=== PATIENT | female | born 1980 | race Caucasian/White ===

== ENCOUNTER 2016-05-08 13:43 | Emergency (ER) | payer OTHER, MEDICAID ==
--- NOTE | 2016-05-08 14:02 | ER Document Report ---
ED Medical Screen (RME) - General Stated Complaint: RIGHT EAR PAIN,SIDE PAIN,LOOSE STOOLS Mode of Arrival: Ambulatory Information source: Patient Notes: C/O abdominal pain with loose stools and right ear pain and swollen lymph node for the past couple days. Denies fever vomiting. Patient is 13 weeks . Patient is due in September, . Denies vaginal bleeding, denies pain with void. Stools have foul smell order, denies recent antibiotic use,no history of C. Diff. I have greeted and performed a rapid initial assessment of this patient. A comprehensive ED assessment and evaluation of the patient, analysis of test results and completion of the medical decision making process will be conducted by additional ED providers. TRAVEL OUTSIDE OF THE [place] 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
[2016-05-08 14:47] LABS: APPEARANCE,URINE CLEAR; BILIRUBIN,URINE NEGATIVE (NEGATIVE); GLUCOSE, URINE NEGATIVE (NEGATIVE); KETONES,URINE 20 mg/dL (NEGATIVE); LEUKOCYTE ESTERASE,URINE NEGATIVE (NEGATIVE); NITRITE,URINE NEGATIVE (NEGATIVE); PROTEIN,URINE NEGATIVE (NEGATIVE); URINE SPECIFIC GRAVITY 1.008; UROBILINOGEN,URINE NEGATIVE mg/dL (<2.0)
[2016-05-08 14:51] LABS: ABSOLUTE EOSINOPHILS # (AUTO) 0.3 10^3/uL (0.0-0.6); ABSOLUTE MONOCYTES (AUTO) 0.3 10^3/uL (0.1-1.4); ABSOLUTE NEUT (AUTO) 7.1 10^3/uL (1.7-8.2); BASOPHILS % (AUTO) 0.4 % (0-2); EOSINOPHILS % (AUTO) 3.1 % (0-6); HEMATOCRIT 39.3 % (36.0-47.0); HEMOGLOBIN 13.1 g/dL (12.0-15.5); LYMPHOCYTES % (AUTO) 20.6 % (13-45); MEAN CORPUSCULAR HEMOGLOBIN 30.7 pg (27.0-33.4); MEAN CORPUSCULAR HGB CONC 33.3 g/dL (32.0-36.0); MEAN CORPUSCULAR VOLUME 92 fl (80-97); MONOCYTES % (AUTO) 3.4 % (3-13); RED BLOOD COUNT 4.25 10^6/uL (3.72-5.28); SEGMENTED NEUTROPHILS % (AUTO) 72.5 % (42-78); WHITE BLOOD COUNT 9.8 10^3/uL (4.0-10.5)
[2016-05-08 15:13] LABS: ALANINE AMINOTRANSFERASE 37 U/L (9-52); ALBUMIN 4.2 g/dL (3.5-5.0); ALKALINE PHOSPHATASE 85 U/L (38-126); ANION GAP 13 (5-19); ASPARTATE AMINO TRANSFERASE 28 U/L (14-36); BILIRUBIN,TOTAL 0.4 mg/dL (0.2-1.3); BLOOD UREA NITROGEN 5 mg/dL (7-20); CALCIUM 9.4 mg/dL (8.4-10.2); CARBON DIOXIDE 26 mmol/L (22-30); CHLORIDE 100 mmol/L (98-107); CREATININE RESULT 0.51 mg/dL (0.52-1.25); GLUCOSE 96 mg/dL (75-110); LIPASE 84.6 U/L (23-300); POTASSIUM 3.7 mmol/L (3.6-5.0); SODIUM 138.6 mmol/L (137-145); TOTAL PROTEIN 7.1 g/dL (6.3-8.2)
--- NOTE | 2016-05-08 16:26 | ER Document Report ---
ED General - General Chief Complaint: Abdominal Pain Stated Complaint: RIGHT EAR PAIN,SIDE PAIN,LOOSE STOOLS Time seen by provider: 16:18 Mode of Arrival: Ambulatory Notes: This is a female that presents today with loose stools, left abdominal pain , and right sided facial pain. She is 13 weeks . She states that 4 days ago she felt like she had mastitis of the right breast, although she stopped breast-feeding 5 months ago. She states that her right breast was tender and swollen and had sharp pains 4 days ago however today she only admits to mild tenderness. Denies any nipple discharge. She states that she uses natural oils and she says she feels better. She was diagnosed with mastitis of the same breast 8 months ago and was put on clarithromycin. Furthermore, she is also complaining of left abdominal pain dull 4 out of 10 constant since yesterday morning. She states that she's been having loose stools since then also. Denies any hematochezia. Finally, she is also complaining of right neck pain that extends from behind the right ear down to the right lower mandible. Pain is characterized as dull and intermittently sharp 4 out of 10 constant that started at 0600 this morning. She denies any vaginal discharge or itch. TRAVEL OUTSIDE OF THE [place] 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 denies: Chest pain Respiratory: No symptoms reported. denies: Cough, Hurts to breathe Gastrointestinal: See HPI Genitourinary: No symptoms reported. denies: Burning, Dysuria Female Genitourinary: Musculoskeletal: No symptoms reported Skin: No symptoms reported Hematologic/Lymphatic: No symptoms reported Physical Exam - Vital signs Vitals: Temp Pulse Resp BP Pulse Ox 98.1 F 88 18 113/71 98 05/08/16 13:52 05/08/16 13:52 05/08/16 13:52 05/08/16 13:52 05/08/16 13:52 - General General appearance: Appears well, Alert - HEENT Head: Normocephalic, Atraumatic Eyes: Normal Conjunctiva: Normal Ears: Normal - Preauricular tenderness Neck: Normal - Small nodule felt under the base of the right lower jaw. Normal skin color no erythema noted no swelling noted. - Respiratory Respiratory status: No respiratory distress Chest status: Nontender Breath sounds: Normal. No: Rales, Rhonchi, Stridor, Wheezing - Cardiovascular Rhythm: Regular Heart sounds: Normal auscultation - Abdominal Inspection: Normal Bowel sounds: Normal Tenderness: Tender - Left lower quadrant tenderness to deep palpation - Back Back: Normal. No: CVA tenderness - Extremities General upper extremity: Normal inspection, Nontender, Normal ROM, Normal strength General lower extremity: Normal inspection, Nontender, Normal ROM, Normal strength - Neurological Cognition: Normal. No: Confused - Psychological Associated symptoms: Normal affect, Normal mood - Skin Skin Temperature: Warm Skin Moisture: Dry Skin Color: Normal Course - Re-evaluation Re-evalutation: 05/08/16 17:05 Patient currently denies any abdominal pain. She says the only pain she feels is for right ear. She denies chest pain shortness of breath fever or chills. She states that she has a follow-up appointment with Dr. [facility] at [facility]. She states that she has taken Keflex in the past with out any reaction. Patient stated that she wanted to go home and did not want to wait for an abdominal ultrasound. Vital signs were reviewed and are stable. - Vital Signs Vital signs: Temp Pulse Resp BP Pulse Ox 97.8 F 78 19 113/75 99 05/08/16 17:33 05/08/16 17:33 05/08/16 17:33 05/08/16 17:33 05/08/16 17:33 - Laboratory Result Diagrams: 05/08/16 14:14 05/08/16 14:14 Laboratory results interpreted by me: 05/08/16 05/08/16 14:14 14:14 BUN 5 L Creatinine 0.51 L Urine Ketones 20 H Discharge - Discharge Clinical Impression: Right ear pain Condition: Stable Disposition: HOME, SELF-CARE Additional Instructions: Return to the emergency department if symptoms worsen. Follow-up with primary care physician.. Prescriptions: Cephalexin Monohydrate [Keflex 250 mg Capsule] 250 mg PO BID #10 capsule Referrals: CISCO CAMPOS MD [Primary Care Provider] - Follow up as needed
[2016-05-08 17:34] VITALS: BP 113/75
== END 2016-05-08 17:33 | disposition home or self-care (01) ==
LOC: ER 13:43
DX: O26.891 Other specified pregnancy related conditions, first trimester (principal); H92.01 Otalgia, right ear; R19.4 Change in bowel habit; R10.9 Unspecified abdominal pain; R10.814 Left lower quadrant abdominal tenderness; R22.0 Localized swelling, mass and lump, head; R51 Headache; O92.29 Other disorders of breast associated with pregnancy and the puerperium; O99.89 Other specified diseases and conditions complicating pregnancy, childbirth and the puerperium; M54.2 Cervicalgia; Z88.0 Allergy status to penicillin; Z3A.13 13 weeks gestation of pregnancy
CPT/HCPCS: 36415; 80053; 81001; 83690; 85025; 99284

== ENCOUNTER 2016-07-23 13:01 | Outpatient (CLI) | payer OTHER, MEDICAID ==
[2016-07-23 14:04] LABS: APPEARANCE,URINE CLOUDY; BILIRUBIN,URINE NEGATIVE (NEGATIVE); GLUCOSE, URINE >=500 mg/dL (NEGATIVE); KETONES,URINE TRACE mg/dL (NEGATIVE); LEUKOCYTE ESTERASE,URINE TRACE (NEGATIVE); NITRITE,URINE NEGATIVE (NEGATIVE); PROTEIN,URINE NEGATIVE (NEGATIVE); URINE SPECIFIC GRAVITY 1.024; UROBILINOGEN,URINE NEGATIVE mg/dL (<2.0)
[2016-07-23 14:16] LABS: URINE BARBITURATES SCREEN NEGATIVE; URINE METHADONE SCREEN NEGATIVE; URINE OPIATES LOW NEGATIVE; URINE PHENCYCLIDINE SCREEN NEGATIVE
[2016-07-23] MEDS ORDERED: RINGERS SOLUTION,LACTATED 1,000 ML IV PRN (14:32)
[2016-07-23] MEDS ORDERED: RINGERS SOLUTION,LACTATED 1,000 ML IV ONE (14:32)
[2016-07-23] MEDS ORDERED: ALBUTEROL SULFATE 0.083% NEB 2.5 MG/3 ML AMPUL NEB ONE ×3 (14:45→14:48)
[2016-07-23 14:47] LABS: ABSOLUTE EOSINOPHILS # (AUTO) 0.2 10^3/uL (0.0-0.6); ABSOLUTE LYMPHOCYTES (AUTO) 1.1 10^3/uL (0.5-4.7); ABSOLUTE MONOCYTES (AUTO) 0.3 10^3/uL (0.1-1.4); ABSOLUTE NEUT (AUTO) 6.6 10^3/uL (1.7-8.2); BASOPHILS % (AUTO) 0.3 % (0-2); EOSINOPHILS % (AUTO) 2.5 % (0-6); HEMOGLOBIN 10.4 g/dL (12.0-15.5); HGB HCT DIFFERENCE 1.2; LYMPHOCYTES % (AUTO) 13.8 % (13-45); MEAN CORPUSCULAR HEMOGLOBIN 30.7 pg (27.0-33.4); MEAN CORPUSCULAR HGB CONC 34.6 g/dL (32.0-36.0); MEAN CORPUSCULAR VOLUME 89 fl (80-97); MONOCYTES % (AUTO) 3.8 % (3-13); RED BLOOD COUNT 3.37 10^6/uL (3.72-5.28); RED CELL DISTRIBUTION WIDTH 13.6 % (11.5-14.0); SEGMENTED NEUTROPHILS % (AUTO) 79.6 % (42-78); WHITE BLOOD COUNT 8.3 10^3/uL (4.0-10.5)
[2016-07-23] MEDS ORDERED: CLINDAMYCIN 900 MG/D5W RTU 50 ML IV ONE (15:14)
[2016-07-23] MEDS ORDERED: CLINDAMYCIN PHOSPHATE 750 MG in DEXTROSE 5%-WATER 100 ML IV SCH (22:00)
--- NOTE | 2016-07-29 12:45 | Antepartum Discharge Summary ---
Antepartum DC Datetime Report Generated by CPN: 07/29/2016 12:45 DIET/ACTIVITY/RESTRICTIONS Diet: Regular (07/23/2016 17:55:Marjorie Yo, RN) Activity: Normal Activity (07/23/2016 17:55:Marjorie Yo, RN) TEACHING/INSTRUCTIONS/REFERRALS Instructions Understood: Patient Verbalized Understanding; Support Person Verbalized Understanding (07/23/2016 17:55:Marjorie Yo, RN) Referrals: None (07/23/2016 17:55:Marjorie Yo RN) Educational Materials- Other: URI CARE NOTES GIVEN TO PT WITH PRESCRIPTIONS- QUESTIONS ANSWERED. (07/23/2016 17:55:Marjorie Yo RN) DISCHARGE INFORMATION Discharged AMA: No (07/23/2016 17:55:Marjorie Yo RN) Discharge Date/Time: 07/23/2016 17:55 (07/23/2016 17:55:Marjorie Yo RN) Discharged To: Home (07/23/2016 17:55:Marjorie Yo RN) Discharge Provider Name: DR JOYNER (07/23/2016 17:55:Marjorie Yo RN) Accompanied By: FAMILY (07/23/2016 17:55:Marjorie Yo RN) Discharge Method: Ambulatory (07/23/2016 17:55:Marjorie Yo RN) Condition: Stable (07/23/2016 17:55:Marjorie Yo RN) FOLLOW UP INFORMATION Follow Up With: [facility] (07/23/2016 17:55:Marjorie Yo RN) Follow Up On: As Scheduled (07/23/2016 17:55:Marjorie Yo RN) Follow Up Phone Number: [facility] - (07/23/2016 17:55:Marjorie Yo RN)
--- NOTE | 2016-07-29 12:46 | L&D General Admission ---
General Admit Datetime Report Generated by N: 07/29/2016 12:46 INFORMATION Patient Age: 36 (07/23/2016 13:01:QS system process) EDC: 11/14/2016 00:00 (07/23/2016 13:05:Marjorie Yo RN) : 6 (07/23/2016 13:05:Marjorie Yo RN) Para: 4 (07/23/2016 13:05:Marjorie Yo RN) Term: 3 (07/23/2016 13:05:Marjorie Yo RN) : 1 (07/23/2016 13:05:Marjorie Yo RN) Spontaneous Abortions: 0 (07/23/2016 13:05:Marjorie Yo RN) Induced Abortions: 1 (07/23/2016 13:05:Marjorie Yo RN) Livin (07/23/2016 13:05:Marjorie Yo RN) Cesareans: 0 (07/23/2016 13:05:Marjorie Yo RN) VBACs: 0 (07/23/2016 13:05:Marjorie Yo RN) Ectopic: 0 (07/23/2016 13:05:Marjorie Yo RN) Multiple Births: 0 (07/23/2016 13:05:Marjorie Yo RN) Baby, Number in Womb: 1 (07/23/2016 13:05:Marjorie Yo RN) CARE Primary Shear Grinder Operator: [facility] (07/23/2016 13:05:Marjorie Yo RN) Height (in): 62 (07/23/2016 16:28:QS system process) Height (in): 62 (07/23/2016 13:32:QS system process) ALLERGIES Medication Allergy: Yes (07/23/2016 13:05:Marjorie Yo RN) Medication Allergies: Penicillins (07/23/2016) (07/23/2016 13:32:QS system process) Medication Allergies: Penicillins (05/08/2016) (07/23/2016 13:01:QS system process) Latex Allergy: No Latex Allergies (07/23/2016 13:05:Marjorie Yo RN) Food Allergies: NONE (07/23/2016 13:05:Marjorie Yo RN) Environmental Allergies: CATS, SEASONAL (07/23/2016 13:05:Marjorie Yo RN) COMMUNICATION Primary Language: Pashto (07/23/2016 13:05:Marjorie Yo RN) Medical Tx Preferred Language: Pashto (07/23/2016 13:05:Marjorie Yo RN) Communication Barrier(s): None (07/23/2016 13:05:Marjorie Yo RN) DEMOGRAPHICS Address: [address] [place] [id number] (07/23/2016 13:01:QS system process) Zipcode: [address] (07/23/2016 13:01:QS system process) Home (07/23/2016 13:01:QS system process) SSN: [id number] (07/23/2016 13:01:QS system process) Next of Kin Name: RUPERTO XIONG (07/23/2016 13:01:QS system process) Next of Kin (07/23/2016 13:01:QS system process) Next of Kin Relationship: SPO (07/23/2016 13:01:QS system process) Date of : 1980 (07/23/2016 13:01:QS system process) Marital Status: (07/23/2016 13:01:QS system process) Sex: Female (07/23/2016 13:01:QS system process) Race: (07/23/2016 13:01:QS system process) Ethnicity: Non- or (07/23/2016 13:01:QS system process) Sikhism: Confucianism (07/23/2016 13:01:QS system process) LABS Blood Type: A Positive (07/23/2016 13:05:Marjorie Yo RN) Antibody Screen: NEGATIVE (07/23/2016 13:05:Marjorie Yo RN) Hemoglobin: 10.4 L (07/23/2016 14:24:QS system process) Hematocrit: 30.0 L (07/23/2016 14:24:QS system process) MCV: 89 (07/23/2016 14:24:QS system process) RPR/VDRL: Nonreactive (07/23/2016 13:05:Marjorie Yo RN) HIV Exposure Test: Negative (07/23/2016 13:05:Marjorie Yo RN) Hepatitis B: Negative (07/23/2016 13:05:Marjorie Yo RN) Rubella: Immune (07/23/2016 13:05:Marjorie Yo RN)
--- NOTE | 2016-07-29 12:46 | L&D Flow Sheet ---
LD Flowsheet Datetime Report Generated by CPN: 07/29/2016 12:46 Datetime: 07/23/2016 17:41 Vital Signs Stage of : OB Triage (Marjorie Yo RN) NBP Sys/Blessing/Mean (mmHg): 113 (QS system process) : 66 (QS system process) : 85 (QS system process) Pulse: 95 (QS system process) Respirations: 20 (Marjorie Yo RN) Uterine Activity Monitor Mode: External (Marjorie Yo RN) Monitor Interventions for UA: [place] Adjusted (Marjorie Yo RN) Frequency (min): NONE (Marjorie Yo RN) Resting Tone (Palpate): Relaxed (Marjorie Yo RN) Pain Pain Scale: 2 (Marjorie Yo RN) Pain Presence: Intermittent (Marjorie Yo RN) Pain Type: Dull; Ache (Marjorie Yo RN) Pain Location: Abdomen; Back (Marjorie Yo RN) Pain Relief Measures: Comfort Measures (Marjorie Yo RN) Patient Position/Activity: Left Tilt; Low Fowlers (Marjorie Yo RN) Comfort Measures: Family Support (Marjorie Yo RN) Patient Care Comments: IV D/C- DSG APPLIED (Marjorie Yo RN) Communication Communication: RN at Bedside; RN Reviewed Strip (Marjorie Yo, DIMITRIOS) Communication Comments: D/C HOME ACCOMPANIED BY FAMILY. (Marjorie Yo, RN) LaborFlag: OB Triage (QS system process) Datetime: 07/23/2016 17:11 NBP Sys/Blessing/Mean (mmHg): 117 (QS system process) : 70 (QS system process) : 88 (QS system process) Pulse: 88 (QS system process) LaborFlag: OB Triage (QS system process) Datetime: 07/23/2016 17:10 Vital Signs Stage of : OB Triage (Marjorie Yo, RN) Patient Care IV/Blood Work: New IV Bag Hung (Marjorie Yo, RN) Teaching Instructional Method: Verbal; Written; Patient Instructed; Family/Support Person Instructed; Verbalized Understanding (Marjorie Yo RN) Plan of Care: Plan of Care Discussed (Marjorie Yo RN) Pain Management: Pain Scale/Goals; Comfort Measures (Marjorie Yo RN) Related: Common Discomforts of ; Maternal Physical Changes; Maternal Emotional Changes; Nutrition; Hydration; Activity and Rest (Marjorie Yo, RN) Teaching Comments: URI CARE NOTES (Marjorie Yo, RN) Communication Communication: RN at Bedside; RN Reviewed Strip (Marjorie Yo, RN) Datetime: 07/23/2016 16:45 Vital Signs Stage of : OB Triage (Marjorie Yo, RN) I/O Interventions: Up to BR (Marjorie Yo, RN) Communication Communication: RN at Bedside (Marjorie Yo, RN) Datetime: 07/23/2016 16:41 Vital Signs Stage of : OB Triage (Marjorie Yo, RN) NBP Sys/Blessing/Mean (mmHg): 115 (QS system process) : 68 (QS system process) : 87 (QS system process) Pulse: 82 (QS system process) Respirations: 20 (Marjorie Yo, RN) Uterine Activity Monitor Mode: External (Marjorie Yo RN) Frequency (min): NONE (Marjorie Yo RN) Resting Tone (Palpate): Relaxed (Marjorie Yo RN) Pain Presence: Constant (Marjorie Yo RN) Pain Type: Dull; Ache (Marjorie Yo RN) Pain Location: Abdomen; Back (Marjorie Yo RN) Pain Relief Measures: Comfort Measures (Marjorie Yo RN) Pain Assessment Comments: PT REPORTS SOB IMPROVED, FEELING BETTER @ PRESENT (Marjorie Yo RN) Breath Sounds, Left: Wheezes (Marjorie Yo RN) Breath Sounds, Right: Wheezes (Marjorie Yo RN) Patient Position/Activity: Left Tilt; Low Fowlers (Marjorie Yo RN) Communication Communication: RN at Bedside; RN Reviewed Strip; Provider Orders Received; Report Given to @ DR JOYNER (Marjorie Yo RN) Notification Reason: Status Update; Lab/Diagnostic Study (AYE Pgeuero LaborFlag: OB Triage (QS system process) Datetime: 07/23/2016 16:16 Pulse: 95 (QS system process) SpO2 (%): 98 (QS system process) LaborFlag: OB Triage (QS system process) Datetime: 07/23/2016 16:11 NBP Sys/Blessing/Mean (mmHg): 110 (QS system process) : 65 (QS system process) : 82 (QS system process) Pulse: 98 (QS system process) Pulse: 93 (QS system process) SpO2 (%): 97 (QS system process) LaborFlag: OB Triage (QS system process) Datetime: 07/23/2016 16:06 Pulse: 98 (QS system process) SpO2 (%): 97 (QS system process) LaborFlag: OB Triage (QS system process) Datetime: 07/23/2016 16:01 Pulse: 104 (QS system process) SpO2 (%): 99 (QS system process) LaborFlag: OB Triage (QS system process) Datetime: 07/23/2016 15:56 Pulse: 98 (QS system process) SpO2 (%): 98 (QS system process) LaborFlag: OB Triage (QS system process) Datetime: 07/23/2016 15:51 Pulse: 110 (QS system process) SpO2 (%): 96 (QS system process) LaborFlag: OB Triage (QS system process) Datetime: 07/23/2016 15:42 Vital Signs Stage of : OB Triage (Marjorie Gina Roulund, RN) Medications Antibiotics: Clindamycin IV 900 mg (Marjorie Yo, RN) Patient Care IV/Blood Work: IV Started; IV Bolus Started (Marjorie Yo, RN) Communication Communication: RN at Bedside; RN Reviewed Strip (Marjorie Yo, RN) Datetime: 07/23/2016 15:41 NBP Sys/Blessing/Mean (mmHg): 109 (QS system process) : 67 (QS system process) : 82 (QS system process) Pulse: 96 (QS system process) Pulse: 90 (QS system process) SpO2 (%): 98 (QS system process) LaborFlag: OB Triage (QS system process) Datetime: 07/23/2016 15:36 Pulse: 97 (QS system process) SpO2 (%): 100 (QS system process) LaborFlag: OB Triage (QS system process) Datetime: 07/23/2016 15:17 Pulse: 94 (QS system process) SpO2 (%): 100 (QS system process) LaborFlag: OB Triage (QS system process) Datetime: 07/23/2016 15:12 Pulse: 96 (QS system process) SpO2 (%): 100 (QS system process) LaborFlag: OB Triage (QS system process) Datetime: 07/23/2016 15:11 NBP Sys/Blessing/Mean (mmHg): 114 (QS system process) : 81 (QS system process) : 91 (QS system process) Pulse: 100 (QS system process) Pulse: 101 (QS system process) SpO2 (%): 90 (QS system process) LaborFlag: OB Triage (QS system process) Datetime: 07/23/2016 15:07 Vital Signs Stage of : OB Triage (Marjorie Yo, DIMITRIOS) Respirations: 20 (Marjorie Yo, RN) Uterine Activity Monitor Mode: External; Palpation (Marjorie Yo, RN) Monitor Interventions for UA: [place] Adjusted (Marjorie Yo, RN) Resting Tone (Palpate): Relaxed (Marjorie Yo, DIMITRIOS) Assessment A Monitor Mode: External US (Marjorie Yo, RN) Monitor Interventions for FHR: Ultrasound Adjusted (Marjorie Yo, DIMITRIOS) FHR Baseline Rate : 155 (Marjorie Yo, DIMITRIOS) Patient Position/Activity: Left Tilt; Low Fowlers (Marjorie Yo, RN) Communication Communication: RN at Bedside; RN Reviewed Strip (Marjorie Yo RN) Communication Comments: SPOUSE @ BS. MONITORS APPLIED. (Marjorie Yo RN) LaborFlag: OB Triage (QS system process) Datetime: 07/23/2016 15:06 Pulse: 98 (QS system process) SpO2 (%): 100 (QS system process) LaborFlag: OB Triage (QS system process) Datetime: 07/23/2016 15:01 Pulse: 92 (QS system process) SpO2 (%): 100 (QS system process) LaborFlag: OB Triage (QS system process) Datetime: 07/23/2016 14:55 Pulse: 96 (QS system process) SpO2 (%): 100 (QS system process) Medication Comments: ALBUTEROL NEB TREATMENT BY RESP THERAPY (Marjorie Yo RN) LaborFlag: OB Triage (QS system process) Datetime: 07/23/2016 14:50 Pulse: 98 (QS system process) SpO2 (%): 100 (QS system process) LaborFlag: OB Triage (QS system process) Datetime: 07/23/2016 14:45 Pulse: 94 (QS system process) SpO2 (%): 99 (QS system process) LaborFlag: OB Triage (QS system process) Datetime: 07/23/2016 14:40 Pulse: 93 (QS system process) SpO2 (%): 99 (QS system process) LaborFlag: OB Triage (QS system process) Datetime: 07/23/2016 14:35 Pulse: 96 (QS system process) SpO2 (%): 99 (QS system process) LaborFlag: OB Triage (QS system process) Datetime: 07/23/2016 14:28 Pulse: 101 (QS system process) SpO2 (%): 100 (QS system process) LaborFlag: OB Triage (QS system process) Datetime: 07/23/2016 14:23 Pulse: 100 (QS system process) SpO2 (%): 98 (QS system process) LaborFlag: OB Triage (QS system process) Datetime: 07/23/2016 14:17 Pulse: 163 (QS system process) SpO2 (%): 87 (QS system process) SpO2 (%): 88 (QS system process) LaborFlag: OB Triage (QS system process) Datetime: 07/23/2016 14:12 Pulse: 89 (QS system process) SpO2 (%): 100 (QS system process) LaborFlag: OB Triage (QS system process) Datetime: 07/23/2016 14:10 Pulse: 99 (QS system process) SpO2 (%): 92 (QS system process) LaborFlag: OB Triage (QS system process) Datetime: 07/23/2016 14:07 Pulse: 104 (QS system process) SpO2 (%): 100 (QS system process) LaborFlag: OB Triage (QS system process) Datetime: 07/23/2016 14:02 Pulse: 103 (QS system process) SpO2 (%): 96 (QS system process) LaborFlag: OB Triage (QS system process) Datetime: 07/23/2016 13:56 Pulse: 104 (QS system process) SpO2 (%): 98 (QS system process) LaborFlag: OB Triage (QS system process) Datetime: 07/23/2016 13:48 Pulse: 111 (QS system process) SpO2 (%): 99 (QS system process) LaborFlag: OB Triage (QS system process) Datetime: 07/23/2016 13:45 Vital Signs Stage of : OB Triage (Marjorie Velardend, RN) Pain Pain Scale: 2 (Marjorie Keyesmelissa Yo, RN) Pain Presence: Constant (Marjorie Ginamelissa Yo, RN) Pain Type: Dull; Ache (Marjorie Yo, RN) Pain Location: Abdomen; Back; Head (Marjorie Keyesmelissa Yo, RN) Pain Goal: 1 (Marjorie Ginamelissa Navarrolund, RN) Pain Relief Measures: Comfort Measures (Marjorie Keyesmelissa Navarrolund, RN) Vaginal Exam Membrane Status: Intact (Marjorie Yo, DIMITRIOS) Vaginal Bleeding: None (Marjorie Yo, RN) Maternal Assessment Level of Consciousness: Fully Conscious (Marjorie Yo RN) DTR's/Clonus: DTRs 1+; No Clonus (Marjorie Yo RN) Headache: Frontal (Annotations: INCREASES WHEN BENDING FORWARD) (Marjorie Yo RN) Breath Sounds, Left: Diminished; Crackles (Marjorie Yo RN) Breath Sounds, Right: Diminished; Crackles (Marjorie Yo, DIMITRIOS) Nausea/Vomiting: Denies (Marjorie Yo, DIMITRIOS) Patient Position/Activity: SITTING UP IN LOUNGE CHAIR (Marjorie Yo RN) Comfort Measures: Family Support (Marjorie Yo RN) I/O Interventions: Ice Chips Given; Clear Liquids Given; Up to BR (Marjorie Yo, DIMITRIOS) Teaching Instructional Method: Verbal; Patient Instructed; Verbalized Understanding (Marjorie Yo RN) Plan of Care: Plan of Care Discussed (Marjorie Yo RN) Unit Routine: [place] to Room; Call He; Bed; Visiting Policy; Unit Personnel; Handwashing; Monitoring; Safety/Fall Risk Prevention; Diet/Nutrition Services; Bathroom Privileges (Marjorie Yo RN) Pain Management: Pain Scale/Goals; Comfort Measures (Marjorie Yo RN) Related: Common Discomforts of ; Maternal Physical Changes; Maternal Emotional Changes; Nutrition; Hydration; Activity and Rest (Marjorie Yo RN) Communication Communication: RN at Bedside; RN Reviewed Strip (Marjorie Yo RN) Communication Comments: UNABLE TO PUT PT ON MONITOR UNTIL SPOUSE ARRIVES TO CARE FOR CHILD- PT VERBALIZES UNDERSTANDING. PT DENIES ANY OB ISSUES TODAY. (Marjorie Yo RN) LaborFlag: OB Triage (QS system process) Datetime: 07/23/2016 13:43 Pulse: 115 (QS system process) SpO2 (%): 99 (QS system process) Datetime: 07/23/2016 13:38 Pulse: 122 (QS system process) Pulse: 120 (QS system process) SpO2 (%): 100 (QS system process) SpO2 (%): 89 (QS system process)
--- NOTE | 2016-07-29 12:46 | L&D Admission Assessment ---
LD ADM ASMT Datetime Report Generated by CPN: 07/29/2016 12:46 PATIENT ASSESSMENT Assessment Type: Triage (07/23/2016 13:45:Marjorie Gina Roulund, RN) WEIGHT Weight (lb): 202 (07/23/2016 13:32:QS system process) Weight (kg): 91.8 (07/23/2016 13:32:QS system process) PAIN Pain Scale: 2 (07/23/2016 13:45:Marjorie Yo RN) Pain Presence: Constant (07/23/2016 13:45:Marjorie Yo RN) Pain Type: Dull; Ache (07/23/2016 13:45:Marjorie Yo RN) Pain Location: Abdomen; Back; Head (07/23/2016 13:45:Marjorie Yo RN) Pain Goal: 1 (07/23/2016 13:45:Marjorie Yo RN) Pain Related to Contraction: No (07/23/2016 13:45:Marjorie Yo RN) VAGINAL EXAM Membranes Status: Intact (07/23/2016 13:45:Marjorie Yo RN) NEURO Level of Consciousness: Fully Conscious (07/23/2016 13:45:Marjorie Yo RN) DTR's/Clonus: DTRs 1+; No Clonus (07/23/2016 13:45:Marjorie Yo RN) Headache: Frontal (Annotations: INCREASES WHEN BENDING FORWARD) (07/23/2016 13:45:Marjorie Yo RN) Dizziness: Yes (07/23/2016 13:45:Marjorie Yo RN) Blurred Vision: No (07/23/2016 13:45:Marjorie Yo RN) Extremity Numbness/Tingling : None (07/23/2016 13:45:Marjorie Yo RN) Extremity Movement: Full Range of Motion (07/23/2016 13:45:Marjorie Yo RN) CARDIOVASCULAR Heart Rhythm: Regular (07/23/2016 13:45:Marjorie Yo RN) Nailbeds: [place] (07/23/2016 13:45:Marjorie Yo RN) Capillary Refill: Less than 3 Seconds (07/23/2016 13:45:Marjorie Yo RN) Lower Extremities Edema: Bilateral Lower Extremities (07/23/2016 13:45:Marjorie Yo RN) Lower Extremities Edema Degree: 1+ (07/23/2016 13:45:Marjorie Yo RN) Upper Extremities Edema: None (07/23/2016 13:45:Marjorie Yo RN) Upper Extremities Edema Degree: None (07/23/2016 13:45:Marjorie Yo RN) Facial Edema: None (07/23/2016 13:45:Marjorie Yo RN) RESPIRATORY Respiratory Effort: Labored; Equal Expansion (07/23/2016 13:45:Marjorie Yo RN) Breath Sounds, Left: Diminished; Crackles (07/23/2016 13:45:Marjorie Yo RN) Breath Sounds, Right: Diminished; Crackles (07/23/2016 13:45:Marjorie Yo RN) Cough Productivity: Productive (07/23/2016 13:45:Marjorie Yo RN) GASTROINTESTINAL Nausea/Vomiting: Denies (07/23/2016 13:45:Marjorie Yo RN) Bowel Patterns: Soft, Formed Stool (07/23/2016 13:45:Marjorie Yo RN) Hemorrhoids: None (07/23/2016 13:45:Marjorie Yo RN) Diet Type: Regular diet (07/23/2016 13:45:Marjorie Yo RN) Last Meal: 07/23/2016 08:00 (07/23/2016 13:45:Marjorie Yo RN) GENITOURINARY Bladder: Nondistended (07/23/2016 13:45:Marjorie Yo RN) Frequency of Urination: No (07/23/2016 13:45:Marjorie Yo RN) Urination Burning: No (07/23/2016 13:45:Marjorie Yo RN) Vaginal Bleeding: None (07/23/2016 13:45:Marjorie Yo RN) Vaginal Discharge Amount: Small (07/23/2016 13:45:Marjorie Yo RN) Vaginal Discharge Color: MUCUS (07/23/2016 13:45:Marjorie Yo RN) Vaginal Discharge Odor: Non-Odorous (07/23/2016 13:45:Marjorie Yo RN) Vaginal Discharge Character: Thick (07/23/2016 13:45:Marjorie Yo RN) INTEGUMENTARY Skin Color: Normal for Race (07/23/2016 13:45:Marjorie Yo RN) Skin Temperature: Warm (07/23/2016 13:45:Marjorie Yo RN) Skin Moisture: Dry (07/23/2016 13:45:Marjorie Yo RN) ANGIE SKIN ASSESSMENT Angie Scale Sensory Perception: No Impairment- Responds to verbal commands. Has no sensory deficit which would limit ability to feel or voice pain or discomfort (07/23/2016 13:45:Marjorie Yo RN) Angie Scale Moisture: Rarely Moist- Skin is usually dry. Linen only requires changing at routine intervals (07/23/2016 13:45:Marjorie Yo RN) Angie Scale Activity: Walks Frequently- Walks outside the room at least twice a day and inside room at least every 2 hours during the day. (07/23/2016 13:45:Marjorie Yo RN) Angie Scale Mobility: No Limitations- Makes major and frequent changes in position without assistance (07/23/2016 13:45:Marjorie oY RN) Angie Scale Nutrition: Excellent- Eats most of every meal. Never refuses a meal. Usually eats a total of 4 or more servings of meat and dairy products. Occasionally eats between meals. Does not require supplementation (07/23/2016 13:45:Marjorie Yo RN) Angie Scale Friction and Shear: No Apparent Problem- Moves in bed and in chair independently and has sufficient muscle strength to lift up completely during move. Maintains good position in bed or chair at all times (07/23/2016 13:45:Marjorie Yo RN) SUPPORT Family Support: Child(nirav) visited (07/23/2016 13:45:Marjorie Yo RN) Emotional State: Calm/Relaxed (07/23/2016 13:45:Marjorie Yo RN) SAFETY Call He Within Reach: Yes (07/23/2016 13:45:Marjorie Yo RN) Side Rails Up: Yes (07/23/2016 13:45:Marjorie Yo RN) Bed Wheels Locked: Yes (07/23/2016 13:45:Marjorie Yo RN) Arm Bands Present: Yes (07/23/2016 13:45:Marjorie Yo RN) Isolation: [place] (07/23/2016 13:45:Marjorie Yo RN) FALL SCREEN Fall Risk History of Falling: (0) No (07/23/2016 13:45:Marjorie Yo RN) Fall Risk Secondary Diagnosis: (0) No (07/23/2016 13:45:Marjorie Yo RN) Fall Risk Ambulatory Aid: (0) None/Bedrest/Wheelchair/Nurse Assist (07/23/2016 13:45:Marjorie Yo RN) Fall Risk IV Therapy: (0) No (07/23/2016 13:45:Marjorie Yo RN) Fall Risk Gait: (0) Normal/Bedrest/Immobile (07/23/2016 13:45:Marjorie Yo RN) Fall Risk Mental Status: (0) Oriented to Own Ability (07/23/2016 13:45:Marjorie Yo RN) RECENT TRAVEL/INFECTIOUS DISEASE Recent Exp Communicable Disease: No (07/23/2016 13:45:Marjorie Yo RN) Cough or Fever: No (07/23/2016 13:45:Marjorie Yo RN) Foreign Travel Past 10 Days: No (07/23/2016 13:45:Marjorie Yo RN) Open Wounds or Sores: No (07/23/2016 13:45:Marjorie Yo RN) Prior Antibiotic Resistance Tx: No (07/23/2016 13:45:Marjoire Yo RN) Cultures Obtained: Not Applicable (07/23/2016 13:45:Marjorie Yo RN) Isolation Initiated: No (07/23/2016 13:45:Marjorie Yo RN) Pt/Family Education: Not Applicable (07/23/2016 13:45:Marjorie Yo RN)
--- NOTE | 2016-07-29 12:47 | L&D Discharge Summary ---
OB Discharge Summary Datetime Report Generated by CPN: 07/29/2016 12:46 DISCHARGE DIAGNOSIS Diagnosis/Symptoms: Other Diagnoses/Symptoms Other: URI; NOT IN LABOR Gestation: 23.5 Number of Babies in Womb: 1 Parity: 4 DIET/ACTIVITY/RESTRICTIONS Diet: Regular Activity: Normal Activity TEACHING/INSTRUCTIONS/REFERRALS Instructions Understood: Patient Verbalized Understanding; Support Person Verbalized Understanding Referrals: None Educational Materials- Other: URI CARE NOTES GIVEN TO PT WITH PRESCRIPTIONS- QUESTIONS ANSWERED. DISCHARGE INFORMATION Discharged AMA: No Discharge Date/Time: 07/23/2016 17:55 Discharged To: Home Discharge Provider Name: DR ANYA Accompanied By: FAMILY Discharge Method: Ambulatory Condition: Stable FOLLOW UP INFORMATION Follow Up With: [facility] Follow Up On: As Scheduled Follow Up Phone Number: [facility] -
--- NOTE | 2016-07-29 15:46 | L&D Discharge Summary ---
OB Discharge Summary Datetime Report Generated by CPN: 07/29/2016 15:45 DISCHARGE DIAGNOSIS Diagnosis/Symptoms: Other Diagnoses/Symptoms Other: URI; NOT IN LABOR Gestation: 23.5 Number of Babies in Womb: 1 Parity: 4 DIET/ACTIVITY/RESTRICTIONS Diet: Regular Activity: Normal Activity TEACHING/INSTRUCTIONS/REFERRALS Instructions Understood: Patient Verbalized Understanding; Support Person Verbalized Understanding Referrals: None Educational Materials- Other: URI CARE NOTES GIVEN TO PT WITH PRESCRIPTIONS- QUESTIONS ANSWERED. DISCHARGE INFORMATION Discharged AMA: No Discharge Date/Time: 07/23/2016 17:55 Discharged To: Home Discharge Provider Name: DR ANYA Accompanied By: FAMILY Discharge Method: Ambulatory Condition: Stable FOLLOW UP INFORMATION Follow Up With: [facility] Follow Up On: As Scheduled Follow Up Phone Number: [facility] -
--- NOTE | 2016-07-31 18:01 | L&D General Admission ---
General Admit Datetime Report Generated by N: 07/31/2016 18:00 INFORMATION Patient Age: 36 (07/23/2016 13:01:QS system process) EDC: 11/14/2016 00:00 (07/23/2016 13:05:Marjorie Yo RN) : 6 (07/23/2016 13:05:Marjorie Yo RN) Para: 4 (07/23/2016 13:05:Marjorie Yo RN) Term: 3 (07/23/2016 13:05:Marjorie Yo RN) : 1 (07/23/2016 13:05:Marjorie Yo RN) Spontaneous Abortions: 0 (07/23/2016 13:05:Marjorie Yo RN) Induced Abortions: 1 (07/23/2016 13:05:Marjorie Yo RN) Livin (07/23/2016 13:05:Marjorie Yo RN) Cesareans: 0 (07/23/2016 13:05:Marjorie Yo RN) VBACs: 0 (07/23/2016 13:05:Marjorie Yo RN) Ectopic: 0 (07/23/2016 13:05:Marjorie Yo RN) Multiple Births: 0 (07/23/2016 13:05:Marjorie Yo RN) Baby, Number in Womb: 1 (07/23/2016 13:05:Marjorie Yo RN) CARE Primary Webbing Inspector: [facility] (07/23/2016 13:05:Marjorie Yo RN) Height (in): 62 (07/23/2016 16:28:QS system process) ALLERGIES Medication Allergy: Yes (07/23/2016 13:05:Marjorie Yo RN) Medication Allergies: Penicillins (07/23/2016) (07/23/2016 13:32:QS system process) Latex Allergy: No Latex Allergies (07/23/2016 13:05:Marjorie Yo RN) Food Allergies: NONE (07/23/2016 13:05:Marjorie Yo RN) Environmental Allergies: CATS, SEASONAL (07/23/2016 13:05:Marjorie Yo RN) COMMUNICATION Primary Language: Argentine (07/23/2016 13:05:Marjorie Yo RN) Medical Tx Preferred Language: Argentine (07/23/2016 13:05:Marjorie Yo RN) Communication Barrier(s): None (07/23/2016 13:05:Marjorie Yo RN) DEMOGRAPHICS Address: [address] [place] [id number] (07/23/2016 13:01:QS system process) Zipcode: [address] (07/23/2016 13:01:QS system process) Home (07/23/2016 13:01:QS system process) SSN: [id number] (07/23/2016 13:01:QS system process) Next of Kin Name: RUPERTO XIONG (07/23/2016 13:01:QS system process) Next of Kin (07/23/2016 13:01:QS system process) Next of Kin Relationship: SPO (07/23/2016 13:01:QS system process) Date of : 1980 (07/23/2016 13:01:QS system process) Marital Status: (07/23/2016 13:01:QS system process) Sex: Female (07/23/2016 13:01:QS system process) Race: (07/23/2016 13:01:QS system process) Ethnicity: Non- or (07/23/2016 13:01:QS system process) Baptism: Temple (07/23/2016 13:01:QS system process) LABS Blood Type: A Positive (07/23/2016 13:05:Marjorie Yo RN) Antibody Screen: NEGATIVE (07/23/2016 13:05:Marjorie Yo RN) Hemoglobin: 10.4 L (07/23/2016 14:24:QS system process) Hematocrit: 30.0 L (07/23/2016 14:24:QS system process) MCV: 89 (07/23/2016 14:24:QS system process) RPR/VDRL: Nonreactive (07/23/2016 13:05:Marjorie Yo RN) HIV Exposure Test: Negative (07/23/2016 13:05:Marjorie oY RN) Hepatitis B: Negative (07/23/2016 13:05:Marjorie Yo RN) Rubella: Immune (07/23/2016 13:05:Marjorie Yo RN)
--- NOTE | 2016-07-31 18:01 | L&D Current Admission ---
Current Admit Datetime Report Generated by CPN: 07/31/2016 18:00 ADMISSION INFORMATION Chief Complaint: Back Pain; Headache; Cough; Dizziness; Shortness of Breath; Other (07/23/2016 13:45:Marjorie Yo RN)
--- NOTE | 2016-07-31 18:02 | L&D General Admission ---
General Admit Datetime Report Generated by N: 07/31/2016 18:00 INFORMATION Patient Age: 36 (07/23/2016 13:01:QS system process) EDC: 11/14/2016 00:00 (07/23/2016 13:05:Marjorie Yo RN) : 6 (07/23/2016 13:05:Marjorie Yo RN) Para: 4 (07/23/2016 13:05:Marjorie Yo RN) Term: 3 (07/23/2016 13:05:Marjorie Yo RN) : 1 (07/23/2016 13:05:Marjorie Yo RN) Spontaneous Abortions: 0 (07/23/2016 13:05:Marjorie Yo RN) Induced Abortions: 1 (07/23/2016 13:05:Marjorie Yo RN) Livin (07/23/2016 13:05:Marjorie Yo RN) Cesareans: 0 (07/23/2016 13:05:Marjorie Yo RN) VBACs: 0 (07/23/2016 13:05:Marjorie Yo RN) Ectopic: 0 (07/23/2016 13:05:Marjorie Yo RN) Multiple Births: 0 (07/23/2016 13:05:Marjorie Yo RN) Baby, Number in Womb: 1 (07/23/2016 13:05:Marjorie Yo RN) CARE Primary Continuous Process Rotary Drum Tanner: [facility] (07/23/2016 13:05:Marjorie Yo RN) Height (in): 62 (07/23/2016 16:28:QS system process) ALLERGIES Medication Allergy: Yes (07/23/2016 13:05:Marjorie Yo RN) Medication Allergies: Penicillins (07/23/2016) (07/23/2016 13:32:QS system process) Latex Allergy: No Latex Allergies (07/23/2016 13:05:Marjorie Yo RN) Food Allergies: NONE (07/23/2016 13:05:Marjorie Yo RN) Environmental Allergies: CATS, SEASONAL (07/23/2016 13:05:Marjorie Yo RN) COMMUNICATION Primary Language: Bermudian (07/23/2016 13:05:Marjorie Yo RN) Medical Tx Preferred Language: Bermudian (07/23/2016 13:05:Marjorie Yo RN) Communication Barrier(s): None (07/23/2016 13:05:Marjorie Yo RN) DEMOGRAPHICS Address: [address] [place] [id number] (07/23/2016 13:01:QS system process) Zipcode: [address] (07/23/2016 13:01:QS system process) Home (07/23/2016 13:01:QS system process) SSN: [id number] (07/23/2016 13:01:QS system process) Next of Kin Name: RUPERTO XIONG (07/23/2016 13:01:QS system process) Next of Kin (07/23/2016 13:01:QS system process) Next of Kin Relationship: SPO (07/23/2016 13:01:QS system process) Date of : 1980 (07/23/2016 13:01:QS system process) Marital Status: (07/23/2016 13:01:QS system process) Sex: Female (07/23/2016 13:01:QS system process) Race: (07/23/2016 13:01:QS system process) Ethnicity: Non- or (07/23/2016 13:01:QS system process) Mu-Ism: Scientology (07/23/2016 13:01:QS system process) LABS Blood Type: A Positive (07/23/2016 13:05:Marjorie Yo RN) Antibody Screen: NEGATIVE (07/23/2016 13:05:Marjorie Yo RN) Hemoglobin: 10.4 L (07/23/2016 14:24:QS system process) Hematocrit: 30.0 L (07/23/2016 14:24:QS system process) MCV: 89 (07/23/2016 14:24:QS system process) RPR/VDRL: Nonreactive (07/23/2016 13:05:Marjorie Yo RN) HIV Exposure Test: Negative (07/23/2016 13:05:Marjorie Yo RN) Hepatitis B: Negative (07/23/2016 13:05:Marjorie Yo RN) Rubella: Immune (07/23/2016 13:05:Marjorie Yo RN)
--- NOTE | 2016-07-31 20:23 | L&D Current Admission ---
Current Admit Datetime Report Generated by CPN: 07/31/2016 20:20 ADMISSION INFORMATION Chief Complaint: Back Pain; Headache; Cough; Dizziness; Shortness of Breath; Other (07/23/2016 13:45:Marjorie Yo RN)
--- NOTE | 2016-07-31 20:23 | Delivery Summary ---
Del Sum A-C Datetime Report Generated by CPN: 07/31/2016 20:20 LABOR SUMMARY EDC: 11/14/2016 00:00 No. Babies in Womb: 1
--- NOTE | 2016-07-31 20:23 | L&D General Admission ---
General Admit Datetime Report Generated by N: 07/31/2016 20:20 INFORMATION Patient Age: 36 (07/23/2016 13:01:QS system process) EDC: 11/14/2016 00:00 (07/23/2016 13:05:Marjorie Yo RN) : 6 (07/23/2016 13:05:Marjorie Yo RN) Para: 4 (07/23/2016 13:05:Marjorie Yo RN) Term: 3 (07/23/2016 13:05:Marjorie Yo RN) : 1 (07/23/2016 13:05:Marjorie Yo RN) Spontaneous Abortions: 0 (07/23/2016 13:05:Marjorie Yo RN) Induced Abortions: 1 (07/23/2016 13:05:Marjorie Yo RN) Livin (07/23/2016 13:05:Marjorie Yo RN) Cesareans: 0 (07/23/2016 13:05:Marjorie Yo RN) VBACs: 0 (07/23/2016 13:05:Marjorie Yo RN) Ectopic: 0 (07/23/2016 13:05:Marjorie Yo RN) Multiple Births: 0 (07/23/2016 13:05:Marjorie Yo RN) Baby, Number in Womb: 1 (07/23/2016 13:05:Marjorie Yo RN) CARE Primary Motion Study Technician: [facility] (07/23/2016 13:05:Marjorie Yo RN) Height (in): 62 (07/23/2016 16:28:QS system process) ALLERGIES Medication Allergy: Yes (07/23/2016 13:05:Marjorie Yo RN) Medication Allergies: Penicillins (07/23/2016) (07/23/2016 13:32:QS system process) Latex Allergy: No Latex Allergies (07/23/2016 13:05:Marjorie Yo RN) Food Allergies: NONE (07/23/2016 13:05:Marjorie Yo RN) Environmental Allergies: CATS, SEASONAL (07/23/2016 13:05:Marjorie Yo RN) COMMUNICATION Primary Language: Finnish (07/23/2016 13:05:Marjorie Yo RN) Medical Tx Preferred Language: Finnish (07/23/2016 13:05:Marjorie Yo RN) Communication Barrier(s): None (07/23/2016 13:05:Marjorie Yo RN) DEMOGRAPHICS Address: [address] [place] [id number] (07/23/2016 13:01:QS system process) Zipcode: [address] (07/23/2016 13:01:QS system process) Home (07/23/2016 13:01:QS system process) SSN: [id number] (07/23/2016 13:01:QS system process) Next of Kin Name: RUPERTO XIONG (07/23/2016 13:01:QS system process) Next of Kin (07/23/2016 13:01:QS system process) Next of Kin Relationship: SPO (07/23/2016 13:01:QS system process) Date of : 1980 (07/23/2016 13:01:QS system process) Marital Status: (07/23/2016 13:01:QS system process) Sex: Female (07/23/2016 13:01:QS system process) Race: (07/23/2016 13:01:QS system process) Ethnicity: Non- or (07/23/2016 13:01:QS system process) Advent: Yazdanism (07/23/2016 13:01:QS system process) LABS Blood Type: A Positive (07/23/2016 13:05:Marjorie Yo RN) Antibody Screen: NEGATIVE (07/23/2016 13:05:Marjorie Yo RN) Hemoglobin: 10.4 L (07/23/2016 14:24:QS system process) Hematocrit: 30.0 L (07/23/2016 14:24:QS system process) MCV: 89 (07/23/2016 14:24:QS system process) RPR/VDRL: Nonreactive (07/23/2016 13:05:Marjorie Yo RN) HIV Exposure Test: Negative (07/23/2016 13:05:Marjorie Yo RN) Hepatitis B: Negative (07/23/2016 13:05:Marjorie Yo RN) Rubella: Immune (07/23/2016 13:05:Marjorie Yo RN)
--- NOTE | 2016-07-31 20:27 | L&D General Admission ---
General Admit Datetime Report Generated by N: 07/31/2016 20:20 INFORMATION Patient Age: 36 (07/23/2016 13:01:QS system process) EDC: 11/14/2016 00:00 (07/23/2016 13:05:Marjorie Yo RN) : 6 (07/23/2016 13:05:Marjorie Yo RN) Para: 4 (07/23/2016 13:05:Marjorie Yo RN) Term: 3 (07/23/2016 13:05:Marjorie Yo RN) : 1 (07/23/2016 13:05:Marjorie Yo RN) Spontaneous Abortions: 0 (07/23/2016 13:05:Marjorie Yo RN) Induced Abortions: 1 (07/23/2016 13:05:Marjorie Yo RN) Livin (07/23/2016 13:05:Marjorie Yo RN) Cesareans: 0 (07/23/2016 13:05:Marjorie Yo RN) VBACs: 0 (07/23/2016 13:05:Marjorie Yo RN) Ectopic: 0 (07/23/2016 13:05:Marjorie Yo RN) Multiple Births: 0 (07/23/2016 13:05:Marjorie Yo RN) Baby, Number in Womb: 1 (07/23/2016 13:05:Marjorie Yo RN) CARE Primary Cigar Making Machine Operator: [facility] (07/23/2016 13:05:Marjorie Yo RN) Height (in): 62 (07/23/2016 16:28:QS system process) ALLERGIES Medication Allergy: Yes (07/23/2016 13:05:Marjorie Yo RN) Medication Allergies: Penicillins (07/23/2016) (07/23/2016 13:32:QS system process) Latex Allergy: No Latex Allergies (07/23/2016 13:05:Marjorie Yo RN) Food Allergies: NONE (07/23/2016 13:05:Marjorie Yo RN) Environmental Allergies: CATS, SEASONAL (07/23/2016 13:05:Marjorie Yo RN) COMMUNICATION Primary Language: New Zealander (07/23/2016 13:05:Marjorie Yo RN) Medical Tx Preferred Language: [place] Zealander (07/23/2016 13:05:Marjorie Yo RN) Communication Barrier(s): None (07/23/2016 13:05:Marjorie Yo RN) DEMOGRAPHICS Address: [address] [place] [id number] (07/23/2016 13:01:QS system process) Zipcode: [address] (07/23/2016 13:01:QS system process) Home (07/23/2016 13:01:QS system process) SSN: [id number] (07/23/2016 13:01:QS system process) Next of Kin Name: RUPERTO XIONG (07/23/2016 13:01:QS system process) Next of Kin (07/23/2016 13:01:QS system process) Next of Kin Relationship: SPO (07/23/2016 13:01:QS system process) Date of : 1980 (07/23/2016 13:01:QS system process) Marital Status: (07/23/2016 13:01:QS system process) Sex: Female (07/23/2016 13:01:QS system process) Race: (07/23/2016 13:01:QS system process) Ethnicity: Non- or (07/23/2016 13:01:QS system process) Rastafarian: Judaism (07/23/2016 13:01:QS system process) LABS Blood Type: A Positive (07/23/2016 13:05:Marjorie Yo RN) Antibody Screen: NEGATIVE (07/23/2016 13:05:Marjorie Yo RN) Hemoglobin: 10.4 L (07/23/2016 14:24:QS system process) Hematocrit: 30.0 L (07/23/2016 14:24:QS system process) MCV: 89 (07/23/2016 14:24:QS system process) RPR/VDRL: Nonreactive (07/23/2016 13:05:Marjorie Yo RN) HIV Exposure Test: Negative (07/23/2016 13:05:Marjorie Yo RN) Hepatitis B: Negative (07/23/2016 13:05:Marjorie Yo RN) Rubella: Immune (07/23/2016 13:05:Marjorie Yo RN)
== END 2016-07-23 17:55 | disposition home or self-care (01) ==
LOC: LC 13:01
PROVIDERS: ATTEND Obstetrics & Gynecology
PROC: 4A1HXCZ Monitoring of Products of Conception, Cardiac Rate, External Approach (ICD-10-PCS; principal; 2016-07-23)
DX: O99.512 Diseases of the respiratory system complicating pregnancy, second trimester (principal); J06.9 Acute upper respiratory infection, unspecified; O09.522 Supervision of elderly multigravida, second trimester; Z3A.23 23 weeks gestation of pregnancy
CPT/HCPCS: 36415; 80307; 81001; 85025; 94640

== ENCOUNTER 2016-08-23 12:23 | Outpatient (CLI) | payer OTHER, MEDICAID ==
[2016-08-23 13:01] LABS: APPEARANCE,URINE SLIGHTLY-CLOUDY; BILIRUBIN,URINE NEGATIVE (NEGATIVE); GLUCOSE, URINE >=500 mg/dL (NEGATIVE); KETONES,URINE TRACE mg/dL (NEGATIVE); LEUKOCYTE ESTERASE,URINE NEGATIVE (NEGATIVE); NITRITE,URINE NEGATIVE (NEGATIVE); PROTEIN,URINE NEGATIVE (NEGATIVE); URINE SPECIFIC GRAVITY 1.021; UROBILINOGEN,URINE NEGATIVE mg/dL (<2.0)
[2016-08-23 13:21] LABS: URINE BARBITURATES SCREEN NEGATIVE; URINE METHADONE SCREEN NEGATIVE; URINE OPIATES LOW NEGATIVE; URINE PHENCYCLIDINE SCREEN NEGATIVE
[2016-08-23] MEDS ORDERED: BETAMET ACET/BETAMET NA INJ 6 MG/1 ML ONE (13:36)
== END 2016-08-23 14:16 | disposition home or self-care (01) ==
LOC: LC 12:23
PROVIDERS: ATTEND Specialist
PROC: 4A1HXCZ Monitoring of Products of Conception, Cardiac Rate, External Approach (ICD-10-PCS; principal; 2016-08-23)
DX: O47.03 False labor before 37 completed weeks of gestation, third trimester (principal); O09.523 Supervision of elderly multigravida, third trimester; Z3A.29 29 weeks gestation of pregnancy
CPT/HCPCS: 59899; 96372; 81001; 80307; J0702

== ENCOUNTER 2016-09-01 17:21 | Outpatient (CLI) | payer OTHER, MEDICAID ==
[2016-09-01] MEDS ORDERED: BUTALB/ACETAMINOPHEN/CAFFEINE 1 TAB EACH PO ONE (18:12)
[2016-09-01] MEDS ORDERED: BUTALB/ACETAMINOPHEN/CAFFEINE 1 TAB EACH ONE (18:19)
[2016-09-01 18:42] LABS: APPEARANCE,URINE CLEAR; BILIRUBIN,URINE NEGATIVE (NEGATIVE); GLUCOSE, URINE NEGATIVE (NEGATIVE); KETONES,URINE NEGATIVE (NEGATIVE); LEUKOCYTE ESTERASE,URINE NEGATIVE (NEGATIVE); NITRITE,URINE NEGATIVE (NEGATIVE); PROTEIN,URINE NEGATIVE (NEGATIVE); URINE SPECIFIC GRAVITY 1.002; UROBILINOGEN,URINE NEGATIVE mg/dL (<2.0)
[2016-09-01 19:02] LABS: URINE BARBITURATES SCREEN NEGATIVE; URINE METHADONE SCREEN NEGATIVE; URINE OPIATES LOW NEGATIVE; URINE PHENCYCLIDINE SCREEN NEGATIVE
== END 2016-09-01 19:19 | disposition home or self-care (01) ==
LOC: LC 17:21
PROVIDERS: ATTEND Obstetrics & Gynecology
PROC: 4A1HXCZ Monitoring of Products of Conception, Cardiac Rate, External Approach (ICD-10-PCS; principal; 2016-09-01)
DX: O47.03 False labor before 37 completed weeks of gestation, third trimester (principal); Z3A.29 29 weeks gestation of pregnancy
CPT/HCPCS: 59899; 81001; 80307; 76815; J3490

== ENCOUNTER 2016-10-10 15:59 | Outpatient (CLI) | payer OTHER, MEDICAID ==
[2016-10-10 16:43] LABS: ABSOLUTE EOSINOPHILS # (AUTO) 0.1 10^3/uL (0.0-0.6); ABSOLUTE LYMPHOCYTES (AUTO) 1.3 10^3/uL (0.5-4.7); ABSOLUTE MONOCYTES (AUTO) 0.4 10^3/uL (0.1-1.4); ABSOLUTE NEUT (AUTO) 7.5 10^3/uL (1.7-8.2); BASOPHILS % (AUTO) 0.2 % (0-2); HEMATOCRIT 27.1 % (36.0-47.0); HEMOGLOBIN 8.7 g/dL (12.0-15.5); MEAN CORPUSCULAR HEMOGLOBIN 26.3 pg (27.0-33.4); MEAN CORPUSCULAR HGB CONC 32.3 g/dL (32.0-36.0); MEAN CORPUSCULAR VOLUME 81 fl (80-97); MONOCYTES % (AUTO) 3.9 % (3-13); RED BLOOD COUNT 3.33 10^6/uL (3.72-5.28); RED CELL DISTRIBUTION WIDTH 16.6 % (11.5-14.0); SEGMENTED NEUTROPHILS % (AUTO) 80.9 % (42-78); WHITE BLOOD COUNT 9.3 10^3/uL (4.0-10.5)
[2016-10-10 16:48] LABS: APPEARANCE,URINE CLOUDY; BILIRUBIN,URINE NEGATIVE (NEGATIVE); GLUCOSE, URINE NEGATIVE (NEGATIVE); KETONES,URINE NEGATIVE (NEGATIVE); LEUKOCYTE ESTERASE,URINE TRACE (NEGATIVE); NITRITE,URINE NEGATIVE (NEGATIVE); PROTEIN,URINE 100 mg/dL (NEGATIVE); URINE SPECIFIC GRAVITY 1.013; UROBILINOGEN,URINE NEGATIVE mg/dL (<2.0)
[2016-10-10 16:56] LABS: URINE BARBITURATES SCREEN NEGATIVE; URINE METHADONE SCREEN NEGATIVE; URINE OPIATES LOW NEGATIVE; URINE PHENCYCLIDINE SCREEN NEGATIVE
[2016-10-10 17:04] LABS: ALANINE AMINOTRANSFERASE 29 U/L (9-52); ALBUMIN 3.1 g/dL (3.5-5.0); ALKALINE PHOSPHATASE 156 U/L (38-126); ANION GAP 12 (5-19); ASPARTATE AMINO TRANSFERASE 32 U/L (14-36); BILIRUBIN,DIRECT 0.3 mg/dL (0.0-0.4); BILIRUBIN,TOTAL 0.3 mg/dL (0.2-1.3); BLOOD UREA NITROGEN 6 mg/dL (7-20); CALCIUM 8.8 mg/dL (8.4-10.2); CARBON DIOXIDE 23 mmol/L (22-30); CHLORIDE 103 mmol/L (98-107); CREATININE RESULT 0.51 mg/dL (0.52-1.25); GLUCOSE 131 mg/dL (75-110); LDH 509 U/L (313-618); POTASSIUM 3.9 mmol/L (3.6-5.0); SODIUM 137.7 mmol/L (137-145); TOTAL PROTEIN 5.9 g/dL (6.3-8.2); URIC ACID 4.7 mg/dL (2.5-7.0)
[2016-10-10 17:30] LABS: URINE CREATININE 119.5 mg/dL (16-327); URINE PROTEIN 182.4 mg/dL (<12)
--- NOTE | 2016-10-10 17:51 | Non Stress Test Report ---
Non Stress Test Datetime Report Generated by CPN: 10/10/2016 17:51 DEMOGRAPHIC EGA NST: 35.0 INDICATION Indication for Study: Gestational Hypertension; Ordered by Provider Indication for Study (NST) Other: PRE-E W/U MONITORING Monitor Explained: Monitor Explained; Test Explained; Patient Verbalized Understanding Time on Monitor: 10/10/2016 16:30 Time off Monitor: 10/10/2016 17:21 NST Duration: 51 NST INTERVENTIONS NST Interventions: PO Hydration; Reposition Patient BABY A: [id number] Movement : Present Contraction Frequency : IRREG FHR Baseline : 145 Accelerations : 15X15 Decelerations : None Variability : Moderate 6-25bpm NST Review: Meets Criteria for Reactive NST NST Review and Verified By : DIMITRIOS Ferro Results: Reactive NST REPORT Report Trigger: Send Report
[2016-10-12 18:39] LABS: URINE PROTEIN 63.8 mg/dL (<12)
== END 2016-10-10 17:44 | disposition home or self-care (01) ==
LOC: LC 15:59
PROVIDERS: ATTEND Obstetrics & Gynecology
PROC: 4A1HXCZ Monitoring of Products of Conception, Cardiac Rate, External Approach (ICD-10-PCS; principal; 2016-10-10)
DX: O14.93 Unspecified pre-eclampsia, third trimester (principal)
CPT/HCPCS: 36415; 59025; 80053; 80307; 81001; 82570; 83615; 84156; 84550; 85025

== ENCOUNTER 2016-10-14 10:05 | Outpatient (CLI) | payer OTHER, MEDICAID ==
[2016-10-14 11:30] LABS: ABSOLUTE EOSINOPHILS # (AUTO) 0.1 10^3/uL (0.0-0.6); ABSOLUTE LYMPHOCYTES (AUTO) 1.3 10^3/uL (0.5-4.7); ABSOLUTE MONOCYTES (AUTO) 0.5 10^3/uL (0.1-1.4); ABSOLUTE NEUT (AUTO) 6.7 10^3/uL (1.7-8.2); BASOPHILS % (AUTO) 0.5 % (0-2); EOSINOPHILS % (AUTO) 1.7 % (0-6); HEMATOCRIT 29.1 % (36.0-47.0); HEMOGLOBIN 9.3 g/dL (12.0-15.5); HGB HCT DIFFERENCE -1.2; LYMPHOCYTES % (AUTO) 14.6 % (13-45); MEAN CORPUSCULAR HEMOGLOBIN 25.6 pg (27.0-33.4); MEAN CORPUSCULAR HGB CONC 31.9 g/dL (32.0-36.0); MEAN CORPUSCULAR VOLUME 80 fl (80-97); MONOCYTES % (AUTO) 6.2 % (3-13); RED BLOOD COUNT 3.62 10^6/uL (3.72-5.28); RED CELL DISTRIBUTION WIDTH 17.1 % (11.5-14.0); WHITE BLOOD COUNT 8.7 10^3/uL (4.0-10.5)
[2016-10-14 11:49] LABS: APPEARANCE,URINE CLOUDY; BILIRUBIN,URINE NEGATIVE (NEGATIVE); GLUCOSE, URINE NEGATIVE (NEGATIVE); KETONES,URINE NEGATIVE (NEGATIVE); PROTEIN,URINE >=500 mg/dL (NEGATIVE); URINE SPECIFIC GRAVITY 1.012
[2016-10-14 11:50] LABS: LEUKOCYTE ESTERASE,URINE NEGATIVE (NEGATIVE); NITRITE,URINE NEGATIVE (NEGATIVE); UROBILINOGEN,URINE NEGATIVE mg/dL (<2.0)
[2016-10-14 11:53] LABS: ALANINE AMINOTRANSFERASE 30 U/L (9-52); ALBUMIN 3.1 g/dL (3.5-5.0); ALKALINE PHOSPHATASE 162 U/L (38-126); ANION GAP 8 (5-19); ASPARTATE AMINO TRANSFERASE 28 U/L (14-36); BILIRUBIN,DIRECT 0.2 mg/dL (0.0-0.4); BILIRUBIN,TOTAL 0.4 mg/dL (0.2-1.3); BLOOD UREA NITROGEN 4 mg/dL (7-20); CALCIUM 9.2 mg/dL (8.4-10.2); CARBON DIOXIDE 26 mmol/L (22-30); CHLORIDE 103 mmol/L (98-107); CREATININE RESULT 0.53 mg/dL (0.52-1.25); GLUCOSE 82 mg/dL (75-110); LDH 528 U/L (313-618); POTASSIUM 4.5 mmol/L (3.6-5.0); SODIUM 136.6 mmol/L (137-145); URIC ACID 4.7 mg/dL (2.5-7.0)
[2016-10-14 12:00] LABS: BACTERIA,URINE TRACE /HPF; RBC,URINE NONE SEEN /HPF; WBC,URINE 0-1 /HPF
[2016-10-14 12:07] LABS: URINE BARBITURATES SCREEN NEGATIVE; URINE METHADONE SCREEN NEGATIVE; URINE OPIATES LOW NEGATIVE; URINE PHENCYCLIDINE SCREEN NEGATIVE
[2016-10-14] MEDS ORDERED: MAGNESIUM SULFATE 100 ML IV ONE (12:19)
[2016-10-14] MEDS ORDERED: MAGNESIUM SULFATE/D5W 100 ML IV PRN (12:24)
[2016-10-14] MEDS ORDERED: MAGNESIUM SULFATE 4 GM/100 ML RTUPB IV ONE (12:28)
[2016-10-14] MEDS ORDERED: PROCHLORPERAZINE MALEATE 10 MG TABLET PO ONE ×2 (12:34→12:45)
[2016-10-14] MEDS ORDERED: PROCHLORPERAZINE MALEATE 10 MG TABLET ONE (12:46)
== END 2016-10-14 13:55 | disposition short-term general hospital (02) ==
LOC: LC 10:05
PROVIDERS: ATTEND Specialist
DX: O14.13 Severe pre-eclampsia, third trimester (principal); Z3A.36 36 weeks gestation of pregnancy
CPT/HCPCS: 59025; 36415; 83615; 84550; 85025; 80053; 81001; 80307; J3475; S0183

== ENCOUNTER 2016-11-28 06:50 | Day surgery (SDC) | payer MEDICAID, OTHER ==
[2016-11-27 12:39] LABS: HEMATOCRIT 38.3 % (36.0-47.0); HEMOGLOBIN 12.5 g/dL (12.0-15.5); HGB HCT DIFFERENCE -0.8; MEAN CORPUSCULAR HGB CONC 32.8 g/dL (32.0-36.0); MEAN CORPUSCULAR VOLUME 82 fl (80-97); RED BLOOD COUNT 4.65 10^6/uL (3.72-5.28); RED CELL DISTRIBUTION WIDTH 21.6 % (11.5-14.0); WHITE BLOOD COUNT 5.8 10^3/uL (4.0-10.5)
[2016-11-27 13:38] LABS: APPEARANCE,URINE CLEAR; BILIRUBIN,URINE NEGATIVE (NEGATIVE); GLUCOSE, URINE NEGATIVE (NEGATIVE); KETONES,URINE NEGATIVE (NEGATIVE); LEUKOCYTE ESTERASE,URINE NEGATIVE (NEGATIVE); NITRITE,URINE NEGATIVE (NEGATIVE); PROTEIN,URINE NEGATIVE (NEGATIVE); URINE SPECIFIC GRAVITY 1.005; UROBILINOGEN,URINE NEGATIVE mg/dL (<2.0)
[~2016-11-28 06:50] MED LIST: BUPIVACAINE HCL 0.25 % INJ/PF (2.5 MG/1 ML) 30 ML VIAL ONE; LACTATED RINGERS 1000 ML IV PRN; LIDOCAINE 0.5% INJ-PF (5 MG/ML) 50 ML SDV SUBCUT PRN
[2016-11-28] MEDS ORDERED: SCOPOLAMINE HYDROBROMIDE 1.5 MG PATCH.TD72 ONE (08:13)
[2016-11-28] MEDS ORDERED: METOCLOPRAMIDE HCL INJ/PF 10 MG/2 ML SDV ONE (08:14)
[2016-11-28] MEDS ORDERED: FAMOTIDINE INJ/PF 20 MG/2 ML SDV IV ONE (08:14)
[2016-11-28] MEDS ORDERED: ACETAMINOPHEN 100 ML IV ONE (08:32)
[2016-11-28] MEDS ORDERED: FENTANYL CITRATE INJ/PF 250 MCG/5 ML AMPULE ONE (08:32)
[2016-11-28] MEDS ORDERED: PROPOFOL INJ 200 MG/20 ML VIAL IV ONE (08:32)
[2016-11-28] MEDS ORDERED: MIDAZOLAM 2 MG/2 ML INJ ONE (08:32)
[2016-11-28] MEDS ORDERED: FENTANYL CITRATE INJ/PF 100 MCG/2 ML AMPUL IV PRN ×3 (09:21)
[2016-11-28] MEDS ORDERED: ONDANSETRON HCL INJ/PF 4 MG/2 ML SDV IV PRN (09:21)
[2016-11-28] MEDS ORDERED: PROMETHAZINE HCL INJ 25 MG/1 ML VIAL IV PRN (09:21)
[2016-11-28] MEDS ORDERED: DIPHENHYDRAMINE HCL 50 MG/ML VIAL IV PRN (09:21)
[2016-11-28] MEDS ORDERED: KETOROLAC TROMETHAMINE INJ/PF 30 MG/1 ML SDV ONE (09:46)
--- NOTE | 2016-11-28 10:00 | OPERATIVE REPORT E ---
Operative Report NAME: RADHA XIONG : 1980 AGE: 36Y DATE OF SURGERY: 11/28/2016 ROOM: PREOPERATIVE DIAGNOSIS: Undesired fertility with desire for permanent sterilization with tubal ligation. POSTOPERATIVE DIAGNOSIS: Undesired fertility with desire for permanent sterilization with tubal ligation. OPERATION PERFORMED: Laparoscopic bilateral tubal ligation with Filshie clips. SURGEON: RONAL MEDEIROS M.D. ANESTHESIA: General endotracheal. ESTIMATED BLOOD LOSS: 5 mL. SPECIMEN TO PATHOLOGY: None. FINDINGS: There was a boggy uterus present consistent with less than 2 months . There were normal tubes bilaterally and a normal left ovary. There was an ovarian remnant on the right. There was also a grade 3 to 4 rectocele noted on vaginal exam. DESCRIPTION OF PROCEDURE: After discussing risks, benefits, and alternatives of the procedure and obtaining informed consent, the patient was taken to the operating room where general anesthesia was achieved. She was positioned in a dorsal lithotomy position, prepped and draped in the usual standard fashion. A speculum was placed in the vagina and a Hulka uterine manipulator placed. The speculum was removed and attention was turned to the patient's abdomen. Each trocar site was premedicated with 0.25% Marcaine plain. A 5-mm incision was made in the infraumbilical fold. The abdominal wall was elevated and tje peritoneal cavity entered under direct visualization with the Optiview trocar. The abdomen was insufflated, the patient was placed in Trendelenburg, and the left lower quadrant 8-mm trocar placed under direct visualization. The tubes were identified out to their fimbriated ends. A Filshie clip was placed across the isthmic portion of each fallopian tube. The left lower quadrant trocar was removed under direct visualization and it was assured that there was no bleeding at that site. The abdomen was desufflated and the umbilical port removed. The skin incisions were closed with 3-0 Monocryl followed by Dermabond. The Hulka uterine manipulator was removed from the vagina. Some bleeding was noted; therefore, the speculum was placed and the tenaculum site treated with Monsel Solution. Excellent hemostasis was then observed. All instruments were removed from the vagina. The patient was taken out of dorsal lithotomy and to recovery in stable condition. All sponge, needle, lap and instrument counts were correct x2. DICTATING PHYSICIAN: RONAL MEDEIROS M.D. [id number] PHY#: [id number] ID: [id number] JOB#: [id number] ACCT: [id number] cc:RONAL MEDEIROS M.D. > [facility]
[2016-11-28] MEDS ORDERED: OXYCODONE HCL IR 5 MG TABLET PO PRN ×2 (10:06)
[2016-11-28] MEDS ORDERED: HYDROMORPHONE HCL INJ/PF 2 MG/ML AMPULE IV PRN (10:06)
[2016-11-28 11:59] VITALS: BP 131/90
[2016-11-28] MEDS ORDERED: ONDANSETRON HCL INJ/PF 4 MG/2 ML SDV ONE (13:22)
[2016-11-28] MEDS ORDERED: GLYCOPYRROLATE INJ 0.4 MG/2 ML VIAL ONE (13:22)
[2016-11-28] MEDS ORDERED: DEXAMETHASONE SOD PHOSPHATE INJ 4 MG/1 ML VIAL ONE (13:22)
[2016-11-28] MEDS ORDERED: SUCCINYLCHOLINE CHLORIDE INJ 200 MG/10 ML VIAL ONE (13:22)
== END 2016-11-28 11:40 | disposition home or self-care (01) ==
LOC: OROUT 06:50
PROVIDERS: ATTEND Specialist
PROC: 0UL74CZ Occlusion of Bilateral Fallopian Tubes with Extraluminal Device, Percutaneous Endoscopic Approach (ICD-10-PCS; principal; 2016-11-28 08:45)
DX: Z30.2 Encounter for sterilization (principal); G40.909 Epilepsy, unspecified, not intractable, without status epilepticus; F90.9 Attention-deficit hyperactivity disorder, unspecified type; Z88.0 Allergy status to penicillin; Z87.891 Personal history of nicotine dependence; Z79.899 Other long term (current) drug therapy
CPT/HCPCS: 36415; 85027; 81005; 81025; 58671; J2250; J1100; J3010; J3490 ×3; J1885; J2765; J0330; J2405; S0020; J2704; S0028; J0131; 851

== ENCOUNTER 2018-07-15 15:28 | Emergency (ER) | payer MEDICAID, OTHER ==
--- NOTE | 2018-07-15 16:56 | ER Document Report ---
ED Medical Screen (RME) - General Chief Complaint: Vaginal Bleeding Stated Complaint: VAGINAL BLEEDING, BACK PAIN, DIZZY Time Seen by Provider: 07/15/18 16:33 Primary Care Provider: RONAL MEDEIROS MD [Primary Care Provider] - Follow up as needed Notes: Patient is a 48-year-old female that presents to the emergency department for chief complaint of abnormal menstrual bleeding. She reports having daily bleeding for over a month now, [facility] not have an appointment for some time. She is been explained some lightheadedness as well and dizziness, denies having any syncopal episodes ROS: Other than noted above, the 12 point review of systems was reviewed with the patient and were negative, all pertinent findings are included in the HPI. PHYSICAL EXAMINATION: Vital signs reviewed. GENERAL: Well-appearing, well-nourished and in no acute distress. HEAD: Atraumatic, normocephalic. EYES: Pupils equal round extraocular movements intact, conjunctiva are normal. ENT: Nares patent NECK: Normal range of motion CV: Heart regular rate and rhythm LUNGS: No respiratory distress Musculoskeletal: Normal range of motion NEUROLOGICAL: Normal speech PSYCH: Normal mood, normal affect. MDM: Patient seen and examined for rapid initial assessment. Vital signs reviewed. A comprehensive ED assessment and evaluation of the patient, analysis of test results and completion of the medical decision making process will be conducted by additional ED providers. *Note is created using voice recognition software and may contain spelling, syntax or grammatical errors. TRAVEL OUTSIDE OF THE [place] IN LAST 30 DAYS: No - Related Data Allergies/Adverse Reactions: Penicillins Allergy (Verified 07/15/18 16:39) "My throat closes" Past Medical History - Social History Chew tobacco use (# tins/day): No Frequency of alcohol use: None Drug Abuse: None - Past Medical History Cardiac Medical History: Reports: Hx Hypertension - Preeclampsia Denies: Hx Coronary Artery Disease, Hx Heart Attack Pulmonary Medical History: Reports: Hx Bronchitis, Hx Pneumonia Denies: Hx Asthma, Hx COPD Neurological Medical History: Reports: Hx Seizures - TBI caused seizures . 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
--- NOTE | 2018-07-15 18:14 | ER Document Report ---
ED General - General Chief Complaint: Vaginal Bleeding Stated Complaint: VAGINAL BLEEDING, BACK PAIN, DIZZY Time Seen by Provider: 07/15/18 16:33 Primary Care Provider: RONAL MEDEIROS MD [ACTIVE STAFF] - Follow up as needed TRAVEL OUTSIDE OF THE [place] IN LAST 30 DAYS: No - HPI Notes: Patient is a 38-year-old female with a history of right oophorectomy status post possible fibroid(?) and mental health disorder who presents emergency department complaining of daily vaginal bleeding for the last month. Patient states that she does have some bloating, but no other abdominal pain. She is eating and drinking without difficulty. She is urinating normally and having normal soft bowel movements with the last one today. Patient has no other concern of STD or STI does not want any testing performed. Patient states that she was seen by [facility] and had everything tested recently which was negative. Patient states that she has been unable to get into the [facility] in the last couple weeks so she came here. Patient states that on occasion she will have some lightheadedness, but has been feeling well otherwise. Patient otherwise has had a tubal ligation performed. Patient did note some mid back pain which she has had before, but states that she is just here for with her vaginal bleeding at this time. Denies any headache, fever, head injury, neck pain, changes in vision/speech/mentation/hearing, URI, sore throat, chest pain, palpitations, syncope, cough, shortness of breath, wheeze, dyspnea, abdominal pain, nausea/vomiting/diarrhea, urinary retention, dysuria, hematuria, loss of control of bowel or bladder, numbness/tingling, saddle anesthesia, muscle paralysis/weakness, or rash. - Related Data Allergies/Adverse Reactions: Penicillins Allergy (Verified 07/15/18 16:39) "My throat closes" Past Medical History - Social History Smoking Status: Former Smoker Chew tobacco use (# tins/day): No Frequency of alcohol use: None Drug Abuse: None Family History: None Patient has suicidal ideation: No Patient has homicidal ideation: No - Past Medical History Cardiac Medical History: Reports: Hx Hypertension - Preeclampsia Denies: Hx Coronary Artery Disease, Hx Heart Attack Pulmonary Medical History: Reports: Hx Bronchitis, Hx Pneumonia Denies: Hx Asthma, Hx COPD Neurological Medical History: Reports: Hx Seizures - TBI caused seizures . 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 HEAD: Atraumatic, normocephalic. EYES: Pupils equal round and reactive to light, extraocular movements intact, sclera anicteric, conjunctiva are normal. ENT: Nares patent and without discharge. oropharynx clear without exudates. No tonsilar hypertrophy or erythema. Moist mucous membranes. NECK: Normal range of motion, supple without lymphadenopathy LUNGS: Breath sounds clear to auscultation bilaterally and equal. No wheezes rales or rhonchi. HEART: Regular rate and rhythm without murmurs, rubs, gallops. ABDOMEN: Soft, nontender, nondistended abdomen. No guarding, no rebound. Normal bowel sounds present. No CVA tenderness bilaterally. : declined by pt. Musculoskeletal: FROM to passive/active. Strength 5+/5. Back: FROM. Strength 5+/5. SLR neg. No foot drop. + mild L-paraspinal mm tenderness. No bony or midline tenderness. Extremities: No cyanosis, clubbing, or edema b/l. Peripheral pulses 2+. Capillary refill less than 3 seconds. NEUROLOGICAL: Normal speech, normal gait. PSYCH: Normal mood, normal affect. SKIN: Warm, Dry, normal turgor, no rashes or lesions noted. Course - Re-evaluation Re-evalutation: 07/15/18 19:57 Patient is an afebrile, well-hydrated, 25-year-old female who presents to the ED with dysmenorrhea and ovarian cysts with thickened endometrium unspecified. Vitals are acceptable without any significant tachycardia, tachypnea, or hypoxia. PE is otherwise unremarkable. CBC, BMP, UA, HCG unremarkable/acceptable. Patient is nontoxic-appearing is tolerating p.o. without any difficulties. See TVUS. No other labs or imaging warranted at this time based on H&P. Low suspicion/risk for acute appendicitis, bowel obstruction, acute cholecystitis, acute cholangitis, perforated diverticulitis, incarcerated hernia, pancreatitis, perforated ulcer, peritonitis, sepsis, pelvic inflammatory disease, ectopic , tubo-ovarian abscess, ovarian torsion, or other systemic emergent condition at this time. Patient is aware that her condition can change from initial presentation and she needs to monitor symptoms closely and seek medical attention if any acute changes. Conservative measures otherwise for symptoms. Recheck with your PCM/OBGYN in 3-5 days. Return to the ED with any worsening/concerning symptoms otherwise as reviewed in discharge. Patient is in agreement. - Vital Signs Vital signs: Temp Pulse Resp BP Pulse Ox 97.4 F 78 18 136/93 H 100 07/15/18 15:42 07/15/18 15:42 07/15/18 15:42 07/15/18 15:42 07/15/18 15:42 - Laboratory Result Diagrams: 07/15/18 18:29 07/15/18 18:29 Laboratory results interpreted by me: 07/15/18 07/15/18 18:05 18:29 Hgb 11.8 L Hct 34.3 L RDW 15.1 H Urine Blood LARGE H Discharge - Discharge Clinical Impression: Dysmenorrhea, Endometrial thickening on ultrasound Ovarian cyst Qualifiers: Laterality: left Qualified Code(s): N83.202 - Unspecified ovarian cyst, left side Condition: Stable Disposition: HOME, SELF-CARE Instructions: Dysmenorrhea ([facility]) Additional Instructions: Maintain fluid intake Proper hygienic technique Keep the skin clean Safe sexual practices with condoms everytime Tylenol/ibuprofen as needed F/u with your PCM/OBGYN in 3-5 days for a recheck Return to the ED with any development of CUMMINS/fever, trouble with vision, eye redness, worsening pain, urethral discharge, urinary retention, blood in the urine, flank pain, abdominal pain, n/v, Chest Pain, shortness of breath, joint pains, trouble breathing, or any other worsening/concerning symptoms as needed otherwise. Referrals: RONAL MEDEIROS MD [ACTIVE STAFF] - Follow up as needed [facility] [Provider Group] - Follow up in 3-5 days
[2018-07-15 18:49] LABS: ABSOLUTE BASOPHILS # (AUTO) 0.1 10^3/uL (0.0-0.2); ABSOLUTE EOSINOPHILS # (AUTO) 0.4 10^3/uL (0.0-0.6); ABSOLUTE LYMPHOCYTES (AUTO) 2.2 10^3/uL (0.5-4.7); ABSOLUTE MONOCYTES (AUTO) 0.4 10^3/uL (0.1-1.4); ABSOLUTE NEUT (AUTO) 5.9 10^3/uL (1.7-8.2); BASOPHILS % (AUTO) 0.7 % (0-2); EOSINOPHILS % (AUTO) 4.4 % (0-6); HEMATOCRIT 34.3 % (36.0-47.0); HEMOGLOBIN 11.8 g/dL (12.0-15.5); LYMPHOCYTES % (AUTO) 24.6 % (13-45); MEAN CORPUSCULAR HEMOGLOBIN 30.4 pg (27.0-33.4); MEAN CORPUSCULAR HGB CONC 34.4 g/dL (32.0-36.0); MEAN CORPUSCULAR VOLUME 89 fl (80-97); MONOCYTES % (AUTO) 4.4 % (3-13); PLATELET COUNT 290 10^3/uL (150-450); RED BLOOD COUNT 3.87 10^6/uL (3.72-5.28); RED CELL DISTRIBUTION WIDTH 15.1 % (11.5-14.0); SEGMENTED NEUTROPHILS % (AUTO) 65.9 % (42-78); TOTAL CELLS COUNTED % (AUTO) 100 %
[2018-07-15 18:54] LABS: APPEARANCE,URINE CLEAR; BILIRUBIN,URINE NEGATIVE (NEGATIVE); COLOR,URINE YELLOW; GLUCOSE, URINE NEGATIVE (NEGATIVE); KETONES,URINE NEGATIVE (NEGATIVE); LEUKOCYTE ESTERASE,URINE NEGATIVE (NEGATIVE); NITRITE,URINE NEGATIVE (NEGATIVE); PROTEIN,URINE NEGATIVE (NEGATIVE); URINE SPECIFIC GRAVITY 1.008; UROBILINOGEN,URINE NEGATIVE mg/dL (<2.0)
[2018-07-15 19:06] LABS: ANION GAP 8 (5-19); BLOOD UREA NITROGEN 7 mg/dL (7-20); CALCIUM 9.6 mg/dL (8.4-10.2); CARBON DIOXIDE 29 mmol/L (22-30); CHLORIDE 101 mmol/L (98-107); GLUCOSE 98 mg/dL (75-110); POTASSIUM 4.1 mmol/L (3.6-5.0); SODIUM 137.9 mmol/L (137-145)
--- NOTE | 2018-07-15 19:54 | RADIOLOGY REPORT (SQ) ---
EXAM DESCRIPTION: U/S NON OB PEL TV W/DOPPLER COMPLETED DATE/TIME: 07/15/2018 7:36 pm REASON FOR STUDY: abnormal vaginal bleeding COMPARISON: None. TECHNIQUE: Dynamic and static grayscale images acquired of the pelvis via transvaginal approach and recorded on PACS. Additional selected color Doppler and spectral images recorded. LIMITATIONS: None. FINDINGS: UTERUS: Contour normal. No mass. ENDOMETRIAL STRIPE: There is generalized heterogeneous thickening. CERVIX: No nabothian cysts. RIGHT OVARY AND DOPPLER: Ovary not visualized. LEFT OVARY AND DOPPLER: Multiple cysts on the left ovary, largest measures 4.2 cm in greatest dimensi on. Normal arterial vascular flow without evidence for torsion. FREE FLUID: None noted. OTHER: No other significant finding. MEASUREMENTS: UTERUS: 7.4 x 6.0 x 3.5 cm ENDOMETRIAL STRIPE: 2.4 cm RIGHT OVARY: Not visualized. LEFT OVARY: 7.1 x 3.8 x 3.4 cm IMPRESSION: Heterogeneous thickening of the endometrium measuring 2.4 cm. Multiple cysts on the lef t ovary, largest measures 4.2 cm in greatest dimension. No evidence for torsion. No free fluid. No nvisualized right ovary, reportedly surgically absent. Recommend short interval follow-up ultrasound in 4 to 6 weeks to further assess. TECHNICAL DOCUMENTATION: JOB ID: [id number] [id number] 2010 [employer]- All Rights Reserved Rev Reading location - IP/workstation name: [email or web address]
[2018-07-15] MEDS ORDERED: KETOROLAC TROMETHAMINE INJ/PF 30 MG/1 ML SDV IV ONE (20:06)
[2018-07-15 20:28] VITALS: BP 118/82
--- NOTE | 2018-07-15 20:58 | ER Document Report ---
Doctor's Note Notes: I personally and independently obtained patient history and examined the patient in conjunction with the APC and agree with the assessment, treatment plan and disposition of the patient as recorded by the APC, and have reviewed the APC's note. HISTORY OF PRESENT ILLNESS: Patient is a 48-year-old female that presents to the emergency department for chief complaint of abnormal menstrual bleeding. She reports having daily bleeding for over a month now, [facility] but does not have an appointment for some time. She is been explained some lightheadedness as well and dizziness, denies having any syncopal episodes. She states she has had ovarian tumor in the past, but is unsure she is had a uterine fibroid before. ROS: Other than noted above, the 12 point review of systems was reviewed with the patient and were negative, all pertinent findings are included in the HPI. PHYSICAL EXAMINATION: Vital signs reviewed. GENERAL: Well-appearing, well-nourished and in no acute distress. HEAD: Atraumatic, normocephalic. EYES: Pupils equal round extraocular movements intact, conjunctiva are normal. ENT: Nares patent NECK: Normal range of motion CV: Heart regular rate and rhythm LUNGS: No respiratory distress Musculoskeletal: Normal range of motion NEUROLOGICAL: Normal speech PSYCH: Normal mood, normal affect. MEDICAL DECISION MAKING: Patient seen and examined, vital signs reviewed, patient was worked up for her menstrual bleeding, to evaluate for possible significant anemia, her CBC was unremarkable, only demonstrated a mild anemia, BMP negative, ultrasound demonstrated thickened endometrial stripe, patient will need follow-up with [facility], as she is having continued abnormal menstrual bleeding, and will need further assessment from gynecology. Please review detail APC documentation. *Note is created using voice recognition software and may contain spelling, syntax or grammatical errors. Laboratory 07/15/18 07/15/18 07/15/18 18:05 18:29 18:29 WBC 9.0 RBC 3.87 Hgb 11.8 L Hct 34.3 L MCV 89 MCH 30.4 MCHC 34.4 RDW 15.1 H Plt Count 290 Seg Neutrophils % 65.9 Lymphocytes % 24.6 Monocytes % 4.4 Eosinophils % 4.4 Basophils % 0.7 Absolute Neutrophils 5.9 Absolute Lymphocytes 2.2 Absolute Monocytes 0.4 Absolute Eosinophils 0.4 Absolute Basophils 0.1 Sodium 137.9 Potassium 4.1 Chloride 101 Carbon Dioxide 29 Anion Gap 8 BUN 7 Creatinine 0.58 Est GFR ( Amer) > 60 Est GFR (Non-Af Amer) > 60 Glucose 98 Calcium 9.6 Urine Color YELLOW Urine Appearance CLEAR Urine pH 6.0 Ur Specific [place] 1.008 Urine Protein NEGATIVE Urine Glucose (UA) NEGATIVE Urine Ketones NEGATIVE Urine Blood LARGE H Urine Nitrite NEGATIVE Urine Bilirubin NEGATIVE Urine Urobilinogen NEGATIVE Ur Leukocyte Esterase NEGATIVE Urine RBC (Auto) >182 Squamous Epi Cells Auto 1 Urine Mucus (Auto) RARE Urine Ascorbic Acid NEGATIVE Urine HCG, Qual NEGATIVE Blood Type Antibody Screen 07/15/18 18:29 WBC RBC Hgb Hct MCV MCH MCHC RDW Plt Count Seg Neutrophils % Lymphocytes % Monocytes % Eosinophils % Basophils % Absolute Neutrophils Absolute Lymphocytes Absolute Monocytes Absolute Eosinophils Absolute Basophils Sodium Potassium Chloride Carbon Dioxide Anion Gap BUN Creatinine Est GFR ( Amer) Est GFR (Non-Af Amer) Glucose Calcium Urine Color Urine Appearance Urine pH Ur Specific [place] Urine Protein Urine Glucose (UA) Urine Ketones Urine Blood Urine Nitrite Urine Bilirubin Urine Urobilinogen Ur Leukocyte Esterase Urine RBC (Auto) Squamous Epi Cells Auto Urine Mucus (Auto) Urine Ascorbic Acid Urine HCG, Qual Blood Type A POSITIVE Antibody Screen NEGATIVE Transvaginal US 07/15/18 16:55 IMPRESSION: Heterogeneous thickening of the endometrium measuring 2.4 cm. Multiple cysts on the left ovary, largest measures 4.2 cm in greatest dimension. No evidence for torsion. No free fluid. Nonvisualized right ovary, reportedly surgically absent. Recommend short interval follow-up ultrasound in 4 to 6 weeks to further assess.
== END 2018-07-15 20:28 | disposition home or self-care (01) ==
LOC: ER 15:28
DX: N94.6 Dysmenorrhea, unspecified (principal); N83.202 Unspecified ovarian cyst, left side; R93.89 Abnormal findings on diagnostic imaging of other specified body structures; Z90.721 Acquired absence of ovaries, unilateral; Z88.0 Allergy status to penicillin; Z87.891 Personal history of nicotine dependence; Z98.51 Tubal ligation status
CPT/HCPCS: 99284; 96374; 86900; 86901; 36415; 87086; 86850; 85025; 81025; 87088; 80048; 81001; 76830; 93976; J1885

== ENCOUNTER → 2019-05-12 | Outpatient (CLI) | payer OTHER ==
[2019-05-12 13:17] LABS: ABSOLUTE BASOPHILS # (AUTO) 0.1 10^3/uL (0.0-0.2); ABSOLUTE EOSINOPHILS # (AUTO) 0.3 10^3/uL (0.0-0.6); ABSOLUTE LYMPHOCYTES (AUTO) 1.9 10^3/uL (0.5-4.7); ABSOLUTE MONOCYTES (AUTO) 0.4 10^3/uL (0.1-1.4); ABSOLUTE NEUT (AUTO) 3.4 10^3/uL (1.7-8.2); BASOPHILS % (AUTO) 1.1 % (0-2); EOSINOPHILS % (AUTO) 4.9 % (0-6); HEMATOCRIT 38.3 % (36.0-47.0); HEMOGLOBIN 12.4 g/dL (12.0-15.5); LYMPHOCYTES % (AUTO) 31.3 % (13-45); MEAN CORPUSCULAR HEMOGLOBIN 24.6 pg (27.0-33.4); MEAN CORPUSCULAR HGB CONC 32.3 g/dL (32.0-36.0); MEAN CORPUSCULAR VOLUME 76 fl (80-97); MONOCYTES % (AUTO) 6.2 % (3-13); PLATELET COUNT 337 10^3/uL (150-450); RED BLOOD COUNT 5.02 10^6/uL (3.72-5.28); SEGMENTED NEUTROPHILS % (AUTO) 56.5 % (42-78); TOTAL CELLS COUNTED % (AUTO) 100 %
[2019-05-12 13:39] LABS: ALBUMIN 5.3 g/dL (3.5-5.0); ALKALINE PHOSPHATASE 58 U/L (38-126); ANION GAP 12 (5-19); ASPARTATE AMINO TRANSFERASE 33 U/L (14-36); BILIRUBIN,DIRECT 0.3 mg/dL (0.0-0.4); BILIRUBIN,TOTAL 0.4 mg/dL (0.2-1.3); BLOOD UREA NITROGEN 12 mg/dL (7-20); C-REACTIVE PROTEIN 5.3 mg/L (<10.0); CALCIUM 9.9 mg/dL (8.4-10.2); CARBON DIOXIDE 27 mmol/L (22-30); CHLORIDE 102 mmol/L (98-107); GLUCOSE 90 mg/dL (75-110); POTASSIUM 4.5 mmol/L (3.6-5.0); TOTAL PROTEIN 8.5 g/dL (6.3-8.2)
[2019-05-12 13:55] LABS: ERYTHROCYTE SEDIMENTATION RATE 17 mm/hr (0-20)
[2019-05-13 14:09] LABS: ANTINUCLEAR ANTIBODIES Negative (Negative)
== END ==
LOC: LAB 12:59
PROVIDERS: ATTEND Specialist
DX: R50.9 Fever, unspecified (principal)
CPT/HCPCS: 36415; 80053; 85025; 85652; 86038; 86140; 86430